=== PATIENT | male | born 1985 | race Hispanic/Latino ===

== ENCOUNTER 2024-02-15 18:38 | Emergency (ER) | payer SELFPAY ==
[~2024-02-15] VITALS: Ht 157.5 cm; Wt 90.7 kg
[2024-02-15 19:13] VITALS: TEMP 98.7
[2024-02-15] MEDS ORDERED: TETANUS/DIPHTHERIA TOX ADULT 0.5 ML SYR ONE (19:24)
[2024-02-15] MEDS: TETANUS/DIPHTHERIA TOX ADULT 0.5 ML SYR IM ONE (19:25)
[2024-02-15] MEDS ORDERED: HYDROCODONE/APAP 7.5MG-325MG 1 EA TAB ONE (19:34)
[2024-02-15 19:45] LABS: BASOPHILS % 0.5 % (0.0-1.0); EOSINOPHILS # (AUTO) 0.1 (0.0-0.4); EOSINOPHILS % 1.6 % (0.0-6.0); HEMATOCRIT 43.9 % (38.2-49.6); HEMOGLOBIN 14.4 g/dL (14.0-18.0); LYMPHOCYTES # (AUTO) 1.9 (1.0-3.2); LYMPHOCYTES % 22.4 % (18.0-39.1); MEAN CORPUSCULAR HEMOGLOBIN 27.7 pg (28-32); MEAN CORPUSCULAR HGB CONC 32.8 g/dL (31-35); MEAN CORPUSCULAR VOLUME 84.6 fL (81-99); MONOCYTES # (AUTO) 0.5 (0.2-0.8); MONOCYTES % 6.1 % (4.4-11.3); NEUTROPHILS % 69.1 % (38.7-80.0); PLATELET COUNT 297 x10e3/uL (140-360); RED BLOOD COUNT 5.19 x10e6/uL (4.3-5.7); RED CELL DISTRIBUTION WIDTH 13.8 % (11.7-14.4); WHITE BLOOD COUNT 8.62 x10e3/uL (4.8-10.8)
[2024-02-15 20:06] LABS: CALCIUM 9.4 mg/dL (8.4-10.2); CREATININE, SERUM 0.92 mg/dL (0.72-1.25)
[2024-02-15] MEDS: ONDANSETRON HCL INJ 2MG/ML 2ML 2 MG/ML VIAL IV STA ×2 (20:20→23:59)
[2024-02-15] MEDS: FENTANYL CITRATE/PF 100MCG/2 ML INJ IV ONE (20:20)
[2024-02-15] MEDS ORDERED: SODIUM CHLORIDE 0.9% 1000ML 1,000 ML ONE (20:56)
[2024-02-15] MEDS: HYDROCODONE/APAP 10MG-325MG TAB PO ONE (22:49)
[2024-02-15] MEDS ORDERED: ETOMIDATE 40 MG/ 20ML VIAL IV ONE (23:42)
[2024-02-15 23:54] VITALS: BP 125/84; PULSE 70; RESP 14; TEMP 98.5
[2024-02-15] MEDS: ETOMIDATE 2 MG/ML 10 ML INJ IV STA (23:59)
[2024-02-16] MEDS: FENTANYL CITRATE/PF 100MCG/2 ML INJ IV ONE
[2024-02-16] MEDS ORDERED: ULTRAM 50MG50 MG PO (00:27)
[2024-02-16] MEDS ORDERED: AMOX TR-K CLV1 EAC2 PO (00:27)
[2024-02-16 01:00] VITALS: PULSE 66; RESP 16; O2SAT 97
== END 2024-02-16 01:27 | disposition home or self-care (01) ==
LOC: ER 19:00
DX: S91.341A Puncture wound with foreign body, right foot, initial encounter (principal); W26.8XXA Contact with other sharp object(s), not elsewhere classified, initial encounter; W45.8XXA Other foreign body or object entering through skin, initial encounter; Y93.01 Activity, walking, marching and hiking; Y99.0 Civilian activity done for income or pay
CPT/HCPCS: 36415; 73630; 80048; 85025; 90471; 90714; 94760; 99285; J2405; J2543; J3010; J7030

== ENCOUNTER 2025-05-14 02:52 | Emergency (ER) | payer SELFPAY ==
[~2025-05-14] VITALS: Ht 157.5 cm; Wt 90.7 kg
[~2025-05-14 02:52] MED LIST: AMOX TR-K CLV1 EAC2 PO; ULTRAM 50MG50 MG PO
[2025-05-14 02:58] VITALS: TEMP 97.7
[2025-05-14] MEDS: ONDANSETRON HCL 4 MG ORAL DISINTEGRATING TAB PO STA (03:07)
[2025-05-14] MEDS: KETOROLAC TROMETHAMINE 60 MG/2 ML VIAL IM STA (03:07)
[2025-05-14] MEDS: SODIUM CHLORIDE 0.9% 1000ML 1,000 ML IV STA (03:16)
[2025-05-14] MEDS: ONDANSETRON HCL INJ 2MG/ML 2ML 2 MG/ML VIAL IV STA (03:16)
[2025-05-14] MEDS: KETOROLAC TROMETHAMINE 30 MG/ML VIAL IV STA (03:16)
[2025-05-14 03:37] LABS: BASOPHILS % 0.4 % (0.0-1.0); EOSINOPHILS % 1.8 % (0.0-6.0); LYMPHOCYTES % 19.0 % (18.0-39.1); MONOCYTES % 4.5 % (4.4-11.3); NEUTROPHILS % 73.7 % (38.7-80.0); RED CELL DISTRIBUTION WIDTH 13.1 % (11.7-14.4)
[2025-05-14 03:52] LABS: EST GLOMERULAR FILTRATION RATE 79.0 ML/MIN (>=60)
[2025-05-14 03:52] LABS: LEUKOCYTE ESTERASE ,URINE NEGATIVE (NEGATIVE); PROTEIN,URINE DIPSTICK 1+ (NEGATIVE); URINE UROBILINOGEN 0.2 mg/dL (0.2 - 1)
[2025-05-14 03:53] LABS: CALCIUM OXALATE CRYSTALS,UR MODERATE (FEW); EPITHELIAL CELLS,URINE MODERATE /LPF
[2025-05-14 04:12] VITALS: PULSE 63; RESP 19
[2025-05-14 04:37] VITALS: BP 111/71; PULSE 76; RESP 16; TEMP 97.6; O2SAT 99
[2025-05-14] MEDS ORDERED: KETOROLAC TROME10 MG PO (04:38)
[2025-05-14] MEDS ORDERED: FLOMAX0.4 MG PO (04:38)
[2025-05-14] MEDS ORDERED: ONDANSETRON ODT4 MG PO (04:38)
== END 2025-05-14 04:45 | disposition home or self-care (01) ==
LOC: ER 03:02
DX: R10.9 Unspecified abdominal pain (principal); N20.0 Calculus of kidney; R11.2 Nausea with vomiting, unspecified; K76.0 Fatty (change of) liver, not elsewhere classified
CPT/HCPCS: 36415; 74176; 80053; 81001; 83690; 85025; 99284; J1885; J2405; J7030